=== PATIENT | male | born 1960 | race Caucasian/White ===

== ENCOUNTER 2016-06-10 13:48 | Day surgery (SDC) | payer BC ==
--- NOTE | 2016-06-06 17:44 | HP ---
CC: Gio Segura MD; Mumtaz Gallagher MD ADMITTING HISTORY AND PHYSICAL: DATE OF ADMISSION: 06/10/16 AGE: 56 years. SEX: Male. ADMITTING DIAGNOSES: 1. Right flank pain. 2. Gross hematuria. 3. Calculus, right proximal ureter. PLANNED PROCEDURE: Shock wave lithotripsy of right ureteral calculus, possible right ureteroscopy. SURGEON: Mumtaz Gallagher MD ADMITTING HISTORY AND PHYSICAL: Yvan Fitzgerald is a 56-year-old gentleman who was evaluated for rig ht flank pain and gross hematuria. Ultrasound did not reveal any hydronephrosis and he was sent for a KUB x-ray. My review of the x-ray revealed what appears to be an approximately 5 mm to 6 mm calc ulus in the area of the right ureteropelvic junction. It should be mentioned that on ultrasound, he was noted to have significantly reduced right ureteral jets suggesting a partial obstruction. He wa s given the option of conservative management including alpha blockers, ureteroscopy, or lithotripsy and is now being brought in for lithotripsy of the right ureteral calculus. PAST MEDICAL HISTORY: Significant for: 1. Hypertension. 2. Peripheral neuropathy. PAST SURGICAL HISTORY: Significant for right inguinal hernia repair in 2013. MEDICATIONS: On admission: 1. Cyclobenzaprine 10 mg daily. 2. Lisinopril/hydrochlorothiazide 20/25 mg 1 tablet daily. 3. Valacyclovir 1 tablet daily. 4. Tramadol 50 mg b.i.d. p.r.n. 5. Medical marijuana. ALLERGIES: PENICILLIN (rash). REVIEW OF SYSTEMS: He is otherwise in excellent health and very active physically. He denies any ch est pain or shortness of breath. There is no history of diabetes mellitus or any other major system ic illness. PHYSICAL EXAMINATION GENERAL: Reveals an uncomfortable-appearing middle-aged gentleman. VITAL SIGNS: Blood pressure is 114/70, pulse 82 per minute and regular, oxygen saturation 98%, and temperature 97.5. LUNGS: Clear bilaterally. CARDIOVASCULAR: Regular rate and rhythm. S1, S2. ABDOMEN: Soft with mild right flank tenderness. IMPRESSION: A 56-year-old gentleman with right flank pain and gross hematuria secondary to a calcu jad in the right proximal ureter with partial obstruction. The plan is shock wave lithotripsy of ri ght ureteral calculus, possible right ureteroscopy (depending on x-ray done on the day of the proced ure). [id number]/[facility] #: [id number]
[~2016-06-10 13:48] MED LIST: Buffered Lidocaine 1% SYR 3ML* 3 ML/SYR SYRINGE INTRADERM ONE; Dexamethasone IV* 4 MG/ML 1 ML (4 MG) IV SLOW PU ONE; DiMENhydriNATE IV* 50 MG/ML VIAL IV PUSH PRN; Famotidine IV* 10 MG/ML 2 ML (20 mg) IV ONE; Midazolam* 1 MG/ML 2 ML VIAL (2 MG) ONE; Ondansetron INJ* 2 MG/ML VIAL IV PRN; PROCHLORPERAZINE INJ 5 MG/ML 2 ML VIAL IV PRN; Scopolamine 1.5 mg* PATCH TRANSDERM PRN; fentaNYL* 50 MCG/ML 2 ML VIAL (100 MCG VIAL) IV PRN; fentaNYL* 50 MCG/ML 2 ML VIAL (100 MCG VIAL) ONE
[2016-06-10] MEDS ORDERED: Famotidine IV* 10 MG/ML 2 ML (20 mg) ONE (13:55)
[2016-06-10] MEDS ORDERED: Dexamethasone IV* 4 MG/ML 1 ML (4 MG) ONE (13:55)
[2016-06-10] MEDS ORDERED: Levofloxacin 500 MG IVPREMIX(* 500 MG/100 ML BAG IVPB ONE (13:55)
--- NOTE | 2016-06-10 14:38 | RAD ---
Indication: Preprocedural assessment for shock wave lithotripsy RIGHT side. Comparison: June 06, 2016 abdomen radiograph. Technique: Supine abdomen. Report: Typical partial obscuration of the renal fossa due to bowel contents. No compelling calcifications at the level of either renal fossa or along the expected course of the ureters. Bilateral pelvic phleboliths noted including lucent centered phleboliths at the LEFT hemipelvis above the level of the ischial spines. Unremarkable bowel gas pattern. Unremarkable soft tissue contours. IMPRESSION: No definitive conspicuous urolithiasis.
[2016-06-10] MEDS ORDERED: Lidocaine 2% PF* 10 ML AMP ONE (15:35)
[2016-06-10] MEDS ORDERED: Ketorolac INJ* 30 MG/ML 1 ML VIAL ONE (15:35)
[2016-06-10] MEDS ORDERED: Ondansetron INJ* 2 MG/ML VIAL ONE (15:35)
[2016-06-10] MEDS ORDERED: Propofol* 10 MG/ML 20 ML BTL IV PUSH ONE (15:35)
[2016-06-10] MEDS ORDERED: HYDROmorphone INJ* 1 MG/ML CARPUJECT SYRINGE ONE ×2 (15:35→16:31)
[2016-06-10] MEDS ORDERED: fentaNYL* 50 MCG/ML 5 ML VIAL (250 MCG VIAL) ONE (16:31)
[2016-06-10] MEDS ORDERED: Midazolam* 1 MG/ML 2 ML VIAL (2 MG) ONE (16:32)
[2016-06-10] MEDS ORDERED: KETAMINE HCL* 50 MG/ML 10 ML VIAL ONE (16:38)
[2016-06-10] MEDS ORDERED: Iohexol 180 (CONTRAST) 10 ML SDV IV ONE (16:45)
[2016-06-10] MEDS ORDERED: Propofol* 1,000 MG/100 ML BTL ONE (16:54)
[2016-06-10] MEDS ORDERED: Scopolamine 1.5 mg* PATCH ONE (16:54)
[2016-06-10] MEDS ORDERED: Tamsulosin CAP* 0.4 MG ONE (18:39)
[2016-06-10 19:40] VITALS: BP 138/90
--- NOTE | 2016-06-11 13:44 | OP ---
DATE OF OPERATION: 06/10/16 - [facility] DATE OF : 58 SURGEON: Mumtaz Gallagher MD. ANESTHESIOLOGIST: Dr. Baumann. ANESTHESIA: Intravenous sedation. PRE-OP DIAGNOSES: 1. Gross hematuria. 2. Right flank pain. POST-OP DIAGNOSES: 1. Gross hematuria. 2. Right flank pain. OPERATIVE PROCEDURE: Cystoscopy, right retrograde pyelogram, right ureteroscopy , right pyeloscopy and right stent insertion. COMPLICATIONS: None. STENT USED: 6-Vietnamese stent, right ureter. OPERATIVE FINDINGS: 1. Normal appearing urethra. 2. Mildly enlarged prostate. 3. Normal appearing bladder. 4. Hyperemic changes noted in right proximal ureter and right renal pelvis with no definite calculus noted. INDICATIONS: Yvan Fitzgerald is a 56-year-old gentleman who has had episodic right flank pain and hematuria. He was noted to have mild right hydronephrosis on a sonogram and on an x-ray it appeared that he had a calculus in the right ureter. Because of continued pain and hematuria, he is now being brought in for treatment, possible ureteroscopy or lithotripsy depending on the preoperative imaging findings. DESCRIPTION OF PROCEDURE: After the initial x-ray did not definitely reveal radio- opaque calculus, the decision was made to proceed with right ureteroscopy. After administration of intravenous sedation, the patient was placed in dorsal lithotomy position. Sequential compression devices were in place and functioning. Initial cystoscopy revealed a normal-appearing urethra and a normal appearing bladder. There was no evidence of any bladder lesions noted. Mild enlargement of the prostate was noted. A guidewire was introduced in to the right ureter and open ended catheter was introduced. The ureter was fairly narrow and the open-ended catheter was advanced carefully. Right retrograde pyelogram revealed some irregularity in the midpole calyces but I suspect that this is related to extravasation of contrast. The ureter was carefully dilated to 8-Vietnamese and then a 6-Vietnamese semi-rigid ureteroscope was introduced and advanced under direct vision. The entire distal, mid and proximal ureter were visualized. Some hyperemic changes involving the mucosa had been noted in the proximal right ureter, but there was no evidence of any calculus noted. The ureteroscope was advanced into the renal pelvis, which was mildly dilated and once again there was no calculus or lesion noted within the renal pelvis. The ureteroscope was carefully withdrawn after collecting urine from the right kidney and proximal ureter, which was sent for cytology. A 6-Vietnamese stent was introduced in position under fluoroscopy with good proximal and distal positioning obtained. The bladder was emptied. The patient tolerated the procedure satisfactorily and was transferred back to the recovery area in stable condition. [id number]/[facility] #: [id number] MTDD
[2016-06-13] MEDS ORDERED: Scopolamine PATCH Remove* 1 NOTE MISC PATCH OFF ONE (07:54)
== END 2016-06-10 19:41 | disposition home or self-care (01) ==
LOC: OR 13:48
PROVIDERS: ATTEND Urology
DX: R31.0 Gross hematuria (principal); N23 Unspecified renal colic; I10 Essential (primary) hypertension
CPT/HCPCS: 36415; 74000; 86703; 86803; 88112; A9270-GY; C1876; J1100; J1170; J1885; J1956; J2001; J2250; J2405; J2704; J3010